=== PATIENT | male | born 1985 | race Caucasian/White ===

== ENCOUNTER 2025-02-03 12:44 | Outpatient (CLI) | payer BC, SELFPAY ==
--- NOTE | 2025-02-03 12:57 | XR_ITS ---
WS: [id number] Exam: XR chest 2V* [id number] Date/Time of Exam: 02/03/2025 12:58 PM Reason For Exam: CHEST PRESSURE Comparison 08/02/2017 lungs are fully inflated and clear. Normal cardiomediastinal silhouette and regional bony elements. No pleural effusion. XR/XR chest 2V* [id number] IMPRESSION: 1. Negative chest.
== END 2025-02-03 12:45 | disposition home or self-care (01) ==
LOC: RAD 12:48
PROVIDERS: PCP Nurse Practitioner Family; Visit Provider Nurse Practitioner Family
DX: R07.89 Other chest pain (principal)
CPT/HCPCS: 71046